=== PATIENT | male | born 1965 | race Caucasian/White ===

== ENCOUNTER → 2021-02-10 | Outpatient (CLI) | payer BC | LOC: LAB 13:37 | PROVIDERS: ATTEND Surgery | DX: Z01.812 Encounter for preprocedural laboratory examination (principal); K40.91 Unilateral inguinal hernia, without obstruction or gangrene, recurrent; Z20.822 Contact with and (suspected) exposure to COVID-19 | CPT/HCPCS: U0003 ==

== ENCOUNTER 2021-02-13 07:00 | Day surgery (SDC) | payer BC ==
[~2021-02-13] VITALS: Ht 182.9 cm; Wt 78.5 kg
[~2021-02-13 07:00] MED LIST: ACETAMINOPHEN 500 MG TABLET PO ONE; HYDROmorphone 2 MG/ML VIAL IVP PRN; IV RINGERS,LACTATED 1000ML 1,000 ML IV SCH; MORPHINE SULFATE 2 MG/ML VIAL. IVP PRN; PROCHLORPERAZINE 10 MG/2 ML VIAL. IVP PRN; ceFAZolin SODIUM IV Push 1 GM VIAL. IVP ONE; fentaNYL PF VIAL 100 MCG/2 ML VIAL IVP PRN
[2021-02-13] MEDS ORDERED: BUPIVACAINE-EPI 0.25% 30 ML VIAL KIT. ONE (07:06)
[2021-02-13] MEDS ORDERED: MINERAL OIL for SURGERY 10 ML VIAL. MC ONE (07:06)
[2021-02-13] MEDS ORDERED: fentaNYL PF VIAL 100 MCG/2 ML VIAL ONE ×3 (07:54→08:43)
[2021-02-13] MEDS ORDERED: ROCURONIUM 50 MG/5 ML VIAL. ONE (07:54)
[2021-02-13] MEDS ORDERED: PROPOFOL 10 MG/ML (20ML) VIAL. IV ONE (08:05)
[2021-02-13] MEDS ORDERED: DEXAMETHASONE SOD PHOS 20 MG/5 ML VIAL. ONE (08:05)
[2021-02-13] MEDS ORDERED: ONDANSETRON PF 4 MG/2 ML VIAL. ONE (08:05)
[2021-02-13] MEDS ORDERED: LIDOCAINE 2% PF 5 ML VIAL. ONE (08:06)
[2021-02-13] MEDS ORDERED: SEVOFLURANE 61 TO 120 MINUTES. IH ONE (08:07)
[2021-02-13] MEDS ORDERED: KETOROLAC 30 MG/ML VIAL. ONE (08:11)
[2021-02-13] MEDS ORDERED: NEOSTIGMINE METHYLSULFATE 5 MG/5 ML SYRINGE. ONE (08:11)
[2021-02-13] MEDS ORDERED: GLYCOPYRROLATE 1 MG/5 ML VIAL. ONE (08:12)
--- NOTE | 2021-02-13 08:43 | PDOC4 ---
Operative Note Operative Note Date: February 132020 at 840 Preoperative diagnosis: Recurrent right inguinal hernia Postoperative diagnosis: Same Procedure: Robotic assisted laparoscopic right inguinal hernia repair with mesh Surgeon: Dami Specimen: None Dictation: Patient is a 55-year-old gentleman who had a right inguinal hernia repair many years ago subsequently has developed a painful bulge in his right groin again consistent with a recurrent hernia. Procedure of robotic assisted laparoscopic right inguinal hernia repair with mesh was explained to the patient in detail risk benefits were also discussed including bleeding infection injury to intra-abdominal contents possible necessitating further open operations alternatives to this procedure also discussed with the patient who seemed to understand and gave both verbal and written consent to have the procedure performed. Patient was taken to the operating room placed in the supine position general anesthesia was initiated once patient was sleeping intubated his abdomen was prepped and draped usual sterile fashion using ChloraPrep. Area just above the umbilicus was injected with quarter percent Marcaine with epinephrine incision was made 11 blade scalpel and a varies needle was placed within the abdomen creating pneumoperitoneum once this complete 8 mm da Sushila port was placed and the camera was placed within the abdomen which was inspected it was noted there was a direct inguinal hernia in the right groin. 8 mm ventral port was placed in the left midabdomen and an 8 mm da Sushila port was placed in the right midabdomen. The da Sushila robot was brought and docked all port sites surgeon went to the robotic console using a grasper and Endo Mounika scissors the peritoneum over the right groin was incised and a flap propagated inferiorly with blunt and sharp dissection reducing the hernia sac and contents. A large 3D Bard max mesh for the right side was placed over the hernia defect and along the floor of the right inguinal area once this was in place the peritoneum was then closed over the mesh with a running 2 OV lock absorbable suture. Suture was removed from the abdomen robot undocked from all ports the pneumoperitoneum reduced all ports removed port sites were all closed with 4-0 subcuticular Monocryl Mastisol Steri-Strips and island dressings were applied. Patient was awakened and extubated in the operating room taken to recovery in stable condition all sponge instrument needle counts listed as correct estimated blood loss 5 mL DANY EDGAR MD Feb 13, 2021 08:43
--- NOTE | 2021-02-13 08:45 | DISCH ---
DISCHARGE INSTRUCTIONS Condition on Discharge Condition on Discharge: Stable Activity After Discharge Activity Instructions for Disc: Avoid exertion Other activity instructions: No lifting more than 20 pounds for 2 weeks Diet after Discharge Diet after Discharge: Regular Wound Incision Care Other wound/incision instructi: May shower in 24 hours Contacting the DRYarelis after DC Call your doctor for: If your condition worsens Follow-Up Follow up with: Dr. Edgar in 2 weeks DANY EDGAR MD Feb 13, 2021 08:45
[2021-02-13] MEDS ORDERED: OXYC-325 PO (09:04)
[2021-02-13] MEDS ORDERED: oxyCODONE/APAP 5/325 1 TAB TABLET PO ONE ×2 (09:30)
[2021-02-13 09:35] VITALS: BP 168/78
== END 2021-02-13 09:48 | disposition home or self-care (01) ==
LOC: SURG 07:00
PROVIDERS: ATTEND Surgery
DX: K40.91 Unilateral inguinal hernia, without obstruction or gangrene, recurrent (principal); Z79.899 Other long term (current) drug therapy; Z98.890 Other specified postprocedural states; Z72.89 Other problems related to lifestyle
CPT/HCPCS: 49651; A4364; A4930; A6219; C1781; J0690; J1100; J1885; J2405; J2704; J2710; J3010; J3490; S2900; A4657